=== PATIENT | male | born 1960 | race Caucasian/White ===

== ENCOUNTER 2022-12-02 06:54 | Day surgery (SDC) | payer OTHER ==
[2022-12-02] MEDS ORDERED: Midazolam 1 MG/ML 2 ML SDV IV ONE (06:55)
[2022-12-02] MEDS ORDERED: Propofol 200 MG/20 ML SDV IV ONE (06:55)
[2022-12-02] MEDS ORDERED: Phenylephrine 0.5% Nasal Spray 15 ML Bot NAS ONE (06:55)
[2022-12-02] MEDS ORDERED: Ketorolac 30 MG/ML SDV IVPUSH ONE (06:55)
[2022-12-02] MEDS ORDERED: Lactated Ringers 1,000 ML IV ONE (06:55)
[2022-12-02] MEDS ORDERED: Lidocaine 2% 5 ML SDV IV ONE (06:55)
[2022-12-02] MEDS ORDERED: Ketamine 500 mg/10 ML MDV IV ONE (06:55)
[2022-12-02] MEDS ORDERED: Glycopyrrolate 0.2 MG/ML 5 ML MDV IV ONE (06:55)
[2022-12-02] MEDS ORDERED: Lactated Ringers 1,000 ML IV SCH (08:00)
[2022-12-02] MEDS ORDERED: Sodium Chloride 0.9% 10 ML Syringe FLUSH PRN (08:00)
[2022-12-02] MEDS ORDERED: Bupivacaine 0.25% 30 ML SDV INJECT ONE (09:26)
[2022-12-02] MEDS ORDERED: Lidocaine 1% with EPINEPHrine 1:100,000 20 ML MDV INJECT ONE (09:26)
== END 2022-12-02 09:53 | disposition home or self-care (01) ==
LOC: FB.SDS 06:54
PROVIDERS: ATTEND Surgery
DX: Z12.11 Encounter for screening for malignant neoplasm of colon (principal); K57.30 Diverticulosis of large intestine without perforation or abscess without bleeding; K42.0 Umbilical hernia with obstruction, without gangrene; J45.909 Unspecified asthma, uncomplicated; I10 Essential (primary) hypertension; G47.33 Obstructive sleep apnea (adult) (pediatric); E04.1 Nontoxic single thyroid nodule; E11.9 Type 2 diabetes mellitus without complications; Z79.890 Hormone replacement therapy; Z79.84 Long term (current) use of oral hypoglycemic drugs; Z88.0 Allergy status to penicillin; Z98.890 Other specified postprocedural states
CPT/HCPCS: 00750; 00812; 82947; 88302; A9270-GY; J1885; J2250; J2704; J3490; J7120